=== PATIENT | female | born 1990 | race Caucasian/White ===

== ENCOUNTER 2016-10-26 19:20 | Emergency (ER) | payer OTHER ==
[~2016-10-26] VITALS: Ht 167.6 cm; Wt 80.1 kg
[~2016-10-26 19:20] MED LIST: DOXYCYCLINE HY100 M3 PO; DOXYCYCLINE HY100 MG PO; MOTRIN800 MG PO; PERCOCET 5/31 TABLET PO; ULTRAM50 MG PO; ZOFRAN4 MG PO
[2016-10-26 19:47] LABS: ADD MIUA? YES; BILIRUBIN NEGATIVE; BLOOD NEGATIVE; COLOR YELLOW ((YELLOW)); GLUCOSE (STRIP) NEGATIVE; KETONES 20; LEUKOCYTES TRACE; NITRITE NEGATIVE; PROTEIN (STRIP) 30; SPECIFIC GRAVITY 1.036 (1.000-1.030)
[2016-10-26 19:48] LABS: INTERNAL CONTROL VALID? YES
[2016-10-26 19:57] LABS: BACTERIA NONE SEEN /HPF; EPITHELIAL CELLS 1+ /HPF; MUCUS 1+ /LPF; RED BLOOD CELLS 0-5 /HPF (0-5); UCUL ADDED? NO; UNCLASSIFIED CASTS 0-5 /LPF; UNCLASSIFIED CRYSTALS 2+ /HPF
[2016-10-26] MEDS ORDERED: SERTRALINE HCL50 MG PO (21:57)
[2016-10-26] MEDS ORDERED: GABAPENTIN300 MG PO (21:57)
[2016-10-26] MEDS ORDERED: ADDERALL XR 3030 MG PO (21:57)
[2016-10-26] MEDS ORDERED: ZOFRAN4 MG PO (23:02)
[2016-10-26 23:10] VITALS: BP 101/67
== END 2016-10-26 23:11 | disposition home or self-care (01) ==
LOC: EME 19:20
DX: R11.2 Nausea with vomiting, unspecified (principal); F17.200 Nicotine dependence, unspecified, uncomplicated
CPT/HCPCS: 81003; 84703; 87651 90; 99281; 99284

== ENCOUNTER 2017-08-22 11:31 | Emergency (ER) | payer OTHER ==
[~2017-08-22] VITALS: Ht 167.6 cm; Wt 89.9 kg
[~2017-08-22 11:31] MED LIST changes: +ADDERALL XR 3030 MG PO; +GABAPENTIN300 MG PO; +SERTRALINE HCL50 MG PO
[2017-08-22] MEDS ORDERED: NAPROXEN500 MG PO (13:54)
[2017-08-22] MEDS ORDERED: CLEOCIN150 MG PO (13:54)
[2017-08-22 14:02] VITALS: BP 109/74
== END 2017-08-22 14:03 | disposition home or self-care (01) ==
LOC: EME 11:31
DX: K08.89 Other specified disorders of teeth and supporting structures (principal); F17.200 Nicotine dependence, unspecified, uncomplicated
CPT/HCPCS: 99281; 99284

== ENCOUNTER 2018-01-19 18:04 | Emergency (ER) | payer OTHER ==
[~2018-01-19] VITALS: Ht 167.6 cm; Wt 84.7 kg
[~2018-01-19 18:04] MED LIST changes: +CLEOCIN150 MG PO; +NAPROXEN500 MG PO
[2018-01-19] MEDS ORDERED: AUGMENTIN875 MG PO (20:10)
[2018-01-19 20:16] VITALS: BP 125/86
== END 2018-01-19 20:17 | disposition home or self-care (01) ==
LOC: EME 18:04
DX: H00.014 Hordeolum externum left upper eyelid (principal); Z88.1 Allergy status to other antibiotic agents; F17.200 Nicotine dependence, unspecified, uncomplicated
CPT/HCPCS: 99281; 99284

== ENCOUNTER 2018-03-01 00:10 | Emergency (ER) | payer OTHER ==
[~2018-03-01] VITALS: Ht 167.6 cm; Wt 79.8 kg
[~2018-03-01 00:10] MED LIST changes: +AUGMENTIN875 MG PO
[2018-03-01 00:34] LABS: HEMATOCRIT 42.5 % (36.0-46.0); HEMOGLOBIN 15.1 G/DL (11.9-15.5); MCH 30.6 PG (29.0-34.0); MCHC 35.5 G/DL (30.0-36.0); MCV 86.2 FL (83-99); PLATELET COUNT 271 K/uL (156-360); RBC DIS.WIDTH-CV 11.4 % (11.8-14.6); RED BLOOD COUNT 4.93 M/uL (3.80-5.20); WHITE BLOOD COUNT 13.6 K/uL (4.1-10.2)
[2018-03-01 00:45] LABS: CHLORIDE 105 mEq/L (99-109); POTASSIUM 3.8 mEq/L (3.7-5.4); SODIUM 140 mEq/L (136-147)
[2018-03-01 00:47] LABS: GLUCOSE 95 mg/dL (70-99)
[2018-03-01 00:51] LABS: CREATININE 0.8 mg/dL (0.6-1.3); GFR ESTIMATE (CALCULATED) > 59 mL/min/
[2018-03-01 00:52] LABS: UREA NITROGEN (BUN) 8 mg/dL (9-23)
[2018-03-01 00:56] LABS: TROP-I INTERPRETATION NEGATIVE; TROPONIN-I < 0.01 ng/mL (0.0-0.30)
[2018-03-01] MEDS ORDERED: PROVENTIL HFA6.7 GM IH (04:53)
[2018-03-01 05:21] VITALS: BP 116/70
== END 2018-03-01 05:24 | disposition home or self-care (01) ==
LOC: EME 00:10
PROVIDERS: Orthopaedic Surgery
DX: R07.9 Chest pain, unspecified (principal); R20.0 Anesthesia of skin; R20.2 Paresthesia of skin; H53.8 Other visual disturbances; F17.200 Nicotine dependence, unspecified, uncomplicated
CPT/HCPCS: 71046; 80048; 84484; 85027; 93005; 94640; 99281; 99284